=== PATIENT | male | born 1950 | race Hispanic/Latino ===

== ENCOUNTER → 2018-09-15 | Outpatient (CLI) | payer MEDICARE ==
[2018-09-15 07:40] LABS: AMYLASE 45 U/L (25-125); LIPASE 32 U/L (8-78)
--- NOTE | 2018-09-15 08:09 | Diagnostic Imaging Report ---
EXAM: CT Abdomen and Pelvis WITHOUT contrast INDICATION: Left lower quadrant abdominal pain. COMPARISON: None. TECHNIQUE: Abdomen and pelvis were scanned utilizing a multidetector helical scanner from the lung base to the pubic symphysis without administration of IV contrast. Absence of intravenous contrast decreases sensitivity for detection of focal lesions and vascular pathology. Coronal and sagittal reformations were obtained. Routine protocol was performed. IV CONTRAST: None. ORAL CONTRAST: Gastrografin RADIATION DOSE: Total DLP: 708.7 mGy*cm COMPLICATIONS: None FINDINGS: LINES and TUBES: None. LOWER THORAX: Unremarkable HEPATOBILIARY: Multiple right-sided hepatic cysts. No biliary ductal dilation. Status post cholecystectomy. SPLEEN: No splenomegaly. PANCREAS: No focal masses or ductal dilatation. ADRENALS: No adrenal nodules KIDNEYS/URETERS: No hydronephrosis. No cystic or solid mass lesions. A 2 mm punctate nonobstructing right lower pole renal stone. GI TRACT: No abnormal distention or evidence of bowel obstruction. Sigmoid colonic diverticulosis without CT evidence of diverticulitis. Appendix is normal. The stomach appears mildly thick-walled along the greater curvature but is also partially decompressed. PELVIC ORGANS/BLADDER: The bladder is unremarkable in appearance. Calcified pelvic phlebolith. LYMPH NODES: No lymphadenopathy. VESSELS: Minimal atherosclerotic calcifications of the abdominal aorta. Retroaortic left renal vein. PERITONEUM / RETROPERITONEUM: No free air or fluid. BONES/SOFT TISSUES: No acute osseous abdomen. No suspicious lytic or blastic lesions. There are severe degenerative disc changes at L3-L4. There is mild anterolisthesis of L3 on L4. IMPRESSION: No acute CT abnormality in the abdomen or pelvis. Sigmoid diverticulosis without CT evidence of diverticulitis. Mild apparent wall thickening within the stomach likely reflects decompressed stomach, although gastritis is possible. Suggest clinical correlation. Signed by: Dr. Ca Holliday MD on 09/15/2018 8:06 AM
== END ==
LOC: CT 06:53
PROVIDERS: ATTEND General Practice
DX: R10.32 Left lower quadrant pain (principal)
CPT/HCPCS: 36415; 74176; 82150; 83690

== ENCOUNTER → 2020-03-07 | Outpatient (CLI) | payer MEDICARE ==
--- NOTE | 2020-03-07 10:55 | Diagnostic Imaging Report ---
EXAMINATION: CHEST 2 VIEWS INDICATION: Chest pain ^[id number] ^[id number] ^CHEST PAIN COMPARISON: None FINDINGS: TUBES and LINES: None. LUNGS: Lungs are well inflated. Lungs are clear. There is no evidence of pneumonia or pulmonary edema. PLEURA: No pleural effusion or pneumothorax. HEART AND MEDIASTINUM: The cardiomediastinal silhouette is unremarkable. BONES AND SOFT TISSUES: No acute osseous lesion. Soft tissues are unremarkable. UPPER ABDOMEN: No free air under the diaphragm. IMPRESSION: No acute thoracic abnormality. Signed by: Dr. Tee Collins M.D. on 03/07/2020 10:51 AM
[2020-03-07 11:03] LABS: BASOPHILS % 0.4 % (0.0-1.0); EOSINOPHILS # (AUTO) 0.1 (0.0-0.4); EOSINOPHILS % 2.3 % (0.0-6.0); HEMATOCRIT 42.3 % (38.2-49.6); HEMOGLOBIN 13.4 g/dL (14.0-18.0); MEAN CORPUSCULAR HEMOGLOBIN 29.1 pg (28-32); MEAN CORPUSCULAR HGB CONC 31.7 g/dL (31-35); MONOCYTES # (AUTO) 0.5 (0.2-0.8); MONOCYTES % 10.7 % (4.4-11.3); NEUTROPHILS # (AUTO) 2.2 (2.1-6.9); NEUTROPHILS % 45.2 % (38.7-80.0); PLATELET COUNT 248 x10e3/uL (140-360); RED CELL DISTRIBUTION WIDTH 11.9 % (11.7-14.4)
[2020-03-07 11:26] LABS: ALANINE AMINOTRANSFERASE 24 IU/L (0-55); ALBUMIN 3.7 g/dL (3.5-5.0); ALBUMIN/GLOBULIN RATIO 1.1 (0.8-2.0); ALKALINE PHOSPHATASE 87 IU/L (40-150); ANION GAP 10.7 mmol/L (8-16); BLOOD UREA NITROGEN 14 mg/dL (7-26); BUN/CREATININE RATIO 14 (6-25); CARBON DIOXIDE 29 mmol/L (22-29); CHLORIDE 106 mmol/L (98-107); EST GLOMERULAR FILTRATION RATE > 60 ML/MIN (60-); GLUCOSE 91 mg/dL (74-118); POTASSIUM 4.7 mmol/L (3.5-5.1); SODIUM 141 mmol/L (136-145)
== END ==
LOC: RAD 10:25
PROVIDERS: ATTEND General Practice
DX: R07.9 Chest pain, unspecified (principal)
CPT/HCPCS: 36415; 71046; 80053; 84152; 85025; 93005